=== PATIENT | female | born 1975 | race Caucasian/White ===

== ENCOUNTER → 2016-05-31 | Outpatient (CLI) | payer OTHER ==
--- NOTE | 2016-05-31 16:34 | RAD ---
EXAM: Frontal pelvis with bilateral hips 2 views. HISTORY: Bilateral hip pain. COMPARISON: None. FINDINGS: There is a sclerotic focus along the end osteal of the left proximal femur measuring 11 mm. There is no surrounding periosteal reaction or expansile change. No fractures are identified. The joint spaces and alignment of both hips appear maintained. IMPRESSION: 1. 11 mm sclerotic focus in the left proximal femur may be a bone island but this is unclear. Correlate for left proximal femoral pain. Follow-up radiographs could be performed in 3 months if there is persistent concern. If pain localizes to this site, MRI could be useful.
== END | disposition home or self-care (01) ==
LOC: RAD 14:56
PROVIDERS: ATTEND Physician Assistant Medical
DX: M25.551 Pain in right hip (principal); M25.552 Pain in left hip
CPT/HCPCS: 73521

== ENCOUNTER → 2016-11-08 | Outpatient (CLI) | payer OTHER ==
[2016-10-11 16:26] VITALS: BP 132/81
[2016-11-08 15:36] LABS: ALBUMIN 3.9 g/dL (3.4-5.0); CALCIUM 8.6 mg/dL (8.5-10.1); CREATININE 0.8 mg/dL (0.6-1.0); GFR 79.9; TOTAL BILIRUBIN 0.3 mg/dL (0.2-1.0); TOTAL PROTEIN 7.8 g/dL (6.4-8.2)
== END | disposition home or self-care (01) ==
LOC: LAB 15:00
PROVIDERS: ATTEND Psychiatry & Neurology Neurology
DX: G62.9 Polyneuropathy, unspecified (principal)
CPT/HCPCS: 36415; 80053; 82607; 84443

== ENCOUNTER → 2016-11-30 | Outpatient (CLI) | payer OTHER ==
[2016-10-11 16:26] VITALS: BP 132/81
[2016-11-30 16:21] LABS: CREATININE 0.9 mg/dL (0.6-1.0); GFR 69.7
== END | disposition home or self-care (01) ==
LOC: LAB 15:54
PROVIDERS: ATTEND Psychiatry & Neurology Neurology
DX: G93.2 Benign intracranial hypertension (principal); R79.1 Abnormal coagulation profile
CPT/HCPCS: 36415; 82565; 84520; 85049; 85610

== ENCOUNTER → 2017-01-18 | Outpatient (CLI) | payer OTHER ==
[2016-10-11 16:26] VITALS: BP 132/81
[2017-01-18 15:43] LABS: BASO # 0.1 x10^3/uL (0.0-0.2); BASO % 1 % (0-3); EOS % 1 % (0-3); HEMATOCRIT 36.4 % (36.0-47.0); HEMOGLOBIN 12.3 g/dL (12.0-15.5); LYMPH # 2.2 x10^3/uL (1.0-4.8); LYMPH % 24 % (24-48); MEAN CORPUSCULAR HEMOGLOBIN 29 pg (25-35); MEAN CORPUSCULAR HGB CONC 34 g/dL (31-37); MEAN CORPUSCULAR VOLUME 85 fL (79-100); MONO % 8 % (0-9); NEUT % 66 % (31-73); PLATELET COUNT 286 x10^3/uL (140-400); RED BLOOD COUNT 4.28 x10^6/uL (3.50-5.40); RED CELL DISTRIBUTION WIDTH 13.4 % (11.5-14.5); WHITE BLOOD COUNT 9.2 x10^3/uL (4.0-11.0)
== END | disposition home or self-care (01) ==
LOC: LAB 15:21
PROVIDERS: ATTEND Psychiatry & Neurology Neurology
DX: G93.2 Benign intracranial hypertension (principal)
CPT/HCPCS: 36415; 85025

== ENCOUNTER → 2017-01-24 | Outpatient (CLI) | payer OTHER ==
[~2017-01-24] VITALS: Ht 175.3 cm; Wt 113.4 kg
[~2017-01-24] MED LIST: LIDOCAINE 1% / SOD BICARB 8.4% 20 ML VIAL. IJ ONE; LIDOCAINE 1% Multi-Dose 20 ML VIAL. ONE; LIDOCAINE 1% PF 2 ML VIAL. INJ ONE
[2017-01-24 09:02] VITALS: BP 136/82
--- NOTE | 2017-01-24 10:30 | RAD ---
Fluoroscopically guided lumbar puncture 01/24/2017 Indication: Frequent migraine headaches. Comparison study: None Discussion: The risks and benefits of the procedure were discussed the patient. Informed consent was obtained. Timeout procedure was performed the patient was placed in the prone position. The lumbar spine was evaluated fluoroscopically. The low back was prepped and draped using sterile barrier technique. 1% lidocaine was administered to the skin and subcutaneous tissues for local anesthesia. Under intermittent fluoroscopic guidance a spinal needle was advanced into the thecal sac at the L2-L3 level. Opening pressure measures less than 18 cm water in the prone position. Closing pressure measures less than 18 cm water in the prone position (CSF flow stopped the needle hub with the patient in the prone position, and an 18 cm needle was used therefore opening pressure can only be measured as less than 18 cm) 9 cc of clear CSF was removed and sent for laboratory evaluation. The inner stylette was replaced and the needle was removed. Manual pressure was held. No immediate complications were identified. Impression: 1.Successful fluoroscopically guided lumbar puncture 2. Opening and closing pressures are less than 18 cm water, in the prone position, as described above in detail
[2017-01-24 12:00] LABS: CSF CLARITY CLEAR; CSF COLOR COLORLESS
[2017-01-24 12:26] LABS: CSF PROTEIN 36.6 mg/dL (15.0-45.0)
[2017-01-24 12:30] VITALS: BP 132/62
== END | disposition home or self-care (01) ==
LOC: RAD 08:09
PROVIDERS: ATTEND Psychiatry & Neurology Neurology
DX: G43.909 Migraine, unspecified, not intractable, without status migrainosus (principal); G93.2 Benign intracranial hypertension
CPT/HCPCS: 62270; 82945; 84157; 87205; 89051

== ENCOUNTER → 2017-02-01 | Outpatient (CLI) | payer OTHER ==
[2017-01-24 12:30] VITALS: BP 132/62
== END | disposition home or self-care (01) ==
LOC: LAB 14:56
PROVIDERS: ATTEND Nurse Practitioner Gerontology
DX: M25.50 Pain in unspecified joint (principal)
CPT/HCPCS: 36415; 86431

== ENCOUNTER → 2017-06-19 | Outpatient (CLI) | payer BC | END | disposition home or self-care (01) | LOC: ECHO 13:50 | DX: R06.09 Other forms of dyspnea (principal); R00.2 Palpitations | CPT/HCPCS: 93306 ==

== ENCOUNTER 2018-05-20 07:29 | Emergency (ER) | payer SELFPAY ==
[~2018-05-20] VITALS: Ht 175.3 cm; Wt 113.4 kg
[2018-05-20 07:31] VITALS: BP 131/69
--- NOTE | 2018-05-20 08:07 | PHYS DOC ---
Past Medical History Past Medical History: Arthritis, Other Additional Past Medical Histor: fibromyalgia Past Surgical History: No Surgical History Alcohol Use: Rarely Drug Use: None Adult General Chief Complaint Chief Complaint: UPPER EXTREMITY PAIN [facility] HPI Patient is a 43-year-old female who presents with complaint of left shoulder and arm pain for the last couple of weeks. Patient states that she had fallen about a month ago and injured her right ankle. She states that her shoulder bothered her a little bit at that time but she was more concerned about her ankle. Patient had x-rays of the ankle that demonstrated no acute abnormalities. She states that really over the last week the pain has been progressively getting worse and now she is having a difficult time lifting her arm to shoulder level. She rates pain as moderate and states the pain is significantly worsened with any more than minimal motion of the shoulder joint. She describes pain as a deep ache. Review of Systems Review of Systems Constitutional: Denies fever or chills [] Respiratory: Denies cough or shortness of breath [] Cardiovascular: No additional information not addressed in HPI [] Musculoskeletal: Complains of left shoulder and upper arm pain [] Integument: Denies rash or skin lesions [] Allergies Allergies Allergies Coded Allergies Type Severity Reaction Last Updated Verified No Known Drug Allergies 10/22/16 No Physical Exam Physical Exam Constitutional: Well developed, well nourished, no acute distress, non-toxic appearance. [] Neck: Normal range of motion, no tenderness, supple, no stridor. [] Cardiovascular: Regular rate and rhythm[] Lungs & Thorax: Bilateral breath sounds clear to auscultation [] Skin: Warm, dry, no erythema, no rash. [] Extremities: Examination of left shoulder demonstrates mild diffuse tenderness. There is significantly reduced range of motion with flexion, abduction as well as abduction and extension.. [] Neurologic: Alert and oriented X 3, no focal deficits noted. [] Current Patient Data Vital Signs Vital Signs Date Time Temp Pulse Resp B/P (MAP) Pulse Ox O2 Delivery O2 Flow Rate FiO2 05/20/18 07:31 97.5 87 20 131/69 (89) 99 Room Air 97.5 Lab Values Laboratory Tests Test 05/20/18 08:03 D-Dimer (Maritza) < 0.27 ug/mlFEU EKG EKG [] Radiology/Procedures Radiology/Procedures [] Impressions: PROCEDURE: SHOULDER 2+V LEFT 3 view study of the left shoulder Clinical indications: Left shoulder pain. FINDINGS: An old healed fracture of the lateral aspect of the left clavicle is seen. No acute-appearing fracture is evident. The glenohumeral joint is normally aligned. No AC joint separation is seen. No lytic process is evident. IMPRESSION: No acute osseous abnormality. Electronically signed by: Simon Castelan MD (05/20/2018 8:04 AM) Course & Med Decision Making Course & Med Decision Making Pertinent Labs and Imaging studies reviewed. (See chart for details) [] Dragon Disclaimer Dragon Disclaimer This electronic medical record was generated, in whole or in part, using a voice recognition dictation system. Departure Departure Impression: Primary Impression: Sprain of left shoulder Disposition: 01 HOME, SELF-CARE Condition: STABLE Referrals: REDD CAROLINA (PCP) Patient Instructions: Shoulder Sprain Scripts Diclofenac Sodium (DICLOFENAC SODIUM) 50 Mg Tablet.dr 1 TAB PO BID PRN for PAIN, #20 TAB Prov: BERNIE LABOY Jr. DO 05/20/18 Tramadol Hcl (TRAMADOL HCL) 50 Mg Tablet 50 MG PO Q6HRS PRN for PAIN, #15 TAB Prov: BERNIE LABOY Jr. DO 05/20/18 Problem Qualifiers Primary Impression: Sprain of left shoulder Encounter type: initial encounter Shoulder sprain type: unspecified sprain Qualified Codes: S43.402A - Unspecified sprain of left shoulder joint, initial encounter BERNIE LABOY Jr. DO May 20, 2018 08:07
[2018-05-20] MEDS ORDERED: TRAM50TA PO (08:37)
[2018-05-20] MEDS ORDERED: DICL50TA4 PO (08:37)
== END 2018-05-20 08:50 | disposition home or self-care (01) ==
LOC: ER 07:29
DX: S43.492A Other sprain of left shoulder joint, initial encounter (principal); M19.90 Unspecified osteoarthritis, unspecified site; W18.39XA Other fall on same level, initial encounter; Y93.89 Activity, other specified; Y92.89 Other specified places as the place of occurrence of the external cause; Y99.8 Other external cause status
CPT/HCPCS: 36415; 73030; 85379; 99284-25

== ENCOUNTER 2019-04-11 11:41 | Emergency (ER) | payer SELFPAY ==
[~2019-04-11] VITALS: Ht 175.3 cm; Wt 113.4 kg
[~2019-04-11 11:41] MED LIST changes: +DICL50TA4 PO; -LIDOCAINE 1% / SOD BICARB 8.4% 20 ML VIAL. IJ ONE; -LIDOCAINE 1% Multi-Dose 20 ML VIAL. ONE; -LIDOCAINE 1% PF 2 ML VIAL. INJ ONE; +TRAM50TA PO
--- NOTE | 2019-04-11 12:05 | PHYS DOC ---
Past Medical History Past Medical History: Arthritis, Other Additional Past Medical Histor: fibromyalgia Past Surgical History: No Surgical History Alcohol Use: Rarely Drug Use: None Adult General Chief Complaint Chief Complaint: SORE THROAT HPI HPI Patient is a 44 year old female who presents to the emergency department with complaints of a headache, dry cough, and sore throat for the last 3-4 days. Patient states she started to not feel well about a week ago. She reports having nasal congestion, frequent throat clearing, sore throat, and head congestion. Sh e denies any fever, shortness of breath, wheezing, ear pain, nausea, vomiting, diarrhea, or abdominal pain. She currently rates her pain as 6 out of 10 on pain scale denies any alleviating factors. Her pain increases with swallowing and coughing. All other ROS is neg unless otherwise noted in HPI. Review of Systems Review of Systems See Above Allergies Allergies Allergies Coded Allergies Type Severity Reaction Last Updated Verified No Known Drug Allergies 10/22/16 No Physical Exam Physical Exam See Above Constitutional: Well developed, well nourished, no acute distress, non-toxic appearance, obese. [] HENT: Normocephalic, atraumatic, bilateral external ears normal, bilateral TMs normal, cobblestone appearance of posterior pharynx ,oropharynx moist, no oral exudates, nose congested bilaterally Eyes: PERRLA, EOMI, conjunctiva normal, no discharge. [] Neck: Normal range of motion, no tenderness, supple, no stridor. [] Cardiovascular:Heart rate regular rhythm, no murmur [] Lungs & Thorax: Bilateral breath sounds clear to auscultation, Respirations even and unlabored, no retractions, no respiratory distress [] Skin: Warm, dry, no erythema, no rash. [] Back: No tenderness Extremities: No cyanosis, ROM intact Neurologic: Alert and oriented X 3, no focal deficits noted. [] Psychologic: Affect normal, judgement normal, mood normal. [] Current Patient Data Vital Signs Vital Signs Date Time Temp Pulse Resp B/P (MAP) Pulse Ox O2 Delivery O2 Flow Rate FiO2 04/11/19 11:55 98.3 96 16 148/76 (100) 99 Room Air 98.3 EKG EKG [] Radiology/Procedures Radiology/Procedures [] Course & Med Decision Making Course & Med Decision Making Pertinent Labs and Imaging studies reviewed. (See chart for details) dx: medical screening exam A medical screening exam was performed, patient was found to have no emergent medical condition. The plan of care would've included URI instructions. However, the patient eloped after talking with registration. [] [] Dragon Disclaimer Dragon Disclaimer This electronic medical record was generated, in whole or in part, using a voice recognition dictation system. Departure Departure Impression: Primary Impression: Encounter for medical screening examination Disposition: HOME, SELF-CARE (pt eloped after speaking with registration) Condition: STABLE Referrals: REDD CAROLINA (PCP) DANNA CLAUDIO APRN Apr 11, 2019 12:05
== END 2019-04-11 12:31 | disposition home or self-care (01) ==
LOC: ER 11:41
DX: J02.9 Acute pharyngitis, unspecified (principal); R09.81 Nasal congestion; R51 Headache; R05 Cough; M19.90 Unspecified osteoarthritis, unspecified site; M79.7 Fibromyalgia
CPT/HCPCS: 99281

== ENCOUNTER 2020-02-24 00:45 | Emergency (ER) | payer OTHER ==
[~2020-02-24] VITALS: Ht 175.3 cm; Wt 109.1 kg
[2020-02-24 01:57] LABS: BASO % 1 % (0-3); EOS % 1 % (0-3); HEMATOCRIT 34.2 % (36.0-47.0); HEMOGLOBIN 11.3 g/dL (12.0-15.5); LYMPH # 1.4 x10^3/uL (1.0-4.8); LYMPH % 21 % (24-48); MEAN CORPUSCULAR HEMOGLOBIN 26 pg (25-35); MEAN CORPUSCULAR HGB CONC 33 g/dL (31-37); MEAN CORPUSCULAR VOLUME 79 fL (79-100); MONO # 0.5 x10^3/uL (0.0-1.1); MONO % 8 % (0-9); NEUT # 4.8 x10^3/uL (1.8-7.7); NEUT % 70 % (31-73); PLATELET COUNT 303 x10^3/uL (140-400); RED BLOOD COUNT 4.32 x10^6/uL (3.50-5.40); WHITE BLOOD COUNT 6.9 x10^3/uL (4.0-11.0)
[2020-02-24 01:58] LABS: BILIRUBIN,URINE NEGATIVE (NEG); CLARITY,URINE CLEAR; COLOR,URINE YELLOW; NITRITE,URINE NEGATIVE (NEG); PROTEIN,URINE NEGATIVE (NEG-TRACE)
[2020-02-24 02:02] LABS: BACTERIA,URINE MANY /HPF (0-FEW); RBC,URINE 0 /HPF (0-2)
[2020-02-24 02:06] LABS: CALCIUM 8.9 mg/dL (8.5-10.1); CREATININE 0.8 mg/dL (0.6-1.0); GFR 78.7; POTASSIUM 3.6 mmol/L (3.5-5.1)
[2020-02-24 02:07] LABS: PARTIAL THROMBOPLASTIN TIME 31 SEC (24-38); PROTHROMBIN TIME PATIENT 13.1 SEC (11.7-14.0)
[2020-02-24 02:11] LABS: ALBUMIN 3.7 g/dL (3.4-5.0); ALBUMIN/GLOBULIN RATIO 0.9 (1.0-1.7); MAGNESIUM 2.1 mg/dL (1.8-2.4); TOTAL BILIRUBIN 0.3 mg/dL (0.2-1.0); TOTAL PROTEIN 7.6 g/dL (6.4-8.2)
--- NOTE | 2020-02-24 02:19 | RAD ---
PORTABLE CHEST 1V Clinical History: Reason: CHEST PAIN / Spl. Instructions: / History: Technique: AP view of the chest was obtained at 02/24/2020 1:25 AM. Comparison: None. Findings: The cardiomediastinal silhouette is normal. The pulmonary vasculature is normal. The lungs and pleural margins are clear. Impression: No evidence of an acute cardiopulmonary process. Electronically signed by: Gabriel Leggett III, MD (02/24/2020 2:16 AM) [facility]
[2020-02-24 02:25] LABS: D-DIMER < 0.27 ug/mlFEU (0.00-0.50)
[2020-02-24] MEDS ORDERED: CONTRAST GIVEN. MC PRN (03:30)
[2020-02-24] MEDS ORDERED: IOHEXOL 350 MG/ML 100 ML VIAL. IV ONE (03:30)
--- NOTE | 2020-02-24 04:00 | PHYS DOC ---
Past Medical History Past Medical History: Arthritis, Other Additional Past Medical Histor: fibromyalgia Past Surgical History: Additional Past Surgical Histo: 2 c-sections Smoking Status: Never Smoker Alcohol Use: Rarely Drug Use: None General Adult EDM: Chief Complaint: CHEST PAIN HPI: HPI: Patient is a 44 year old female who presented to ER for evaluation of substernal chest pain happened about 2 hours ago while she was at work. She al so have trouble breathing. Patient denies any recent travel or operation, no family history of heart problem, patient denied any history of high blood pressure or diabetes, no history of high cholesterol. Patient denied being exposed to anybody who tested positive COVID-19, no cough, no fever. 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 Review of Systems: Review of Systems: Constitutional: Denies fever or chills. [] Eyes: Denies change in visual acuity. [] HENT: Denies nasal congestion or sore throat. [] Respiratory: Denies cough , positive for shortness of breath. [] Cardiovascular: Positive for chest pain , no edema. [] GI: Denies abdominal pain, nausea, vomiting, bloody stools or diarrhea. [] : Denies dysuria. [] Musculoskeletal: Denies back pain or joint pain. [] Integument: Denies rash. [] Neurologic: Denies headache, focal weakness or sensory changes. [] Endocrine: Denies polyuria or polydipsia. [] Lymphatic: Denies swollen glands. [] Psychiatric: Denies depression or anxiety. [] Heart Score: HEART Score for Chest Pain: HEART Score for Chest Pain Response (Comments) Value History Slighlty/Non-Suspicious 0 ECG Normal 0 Age < 45 0 Risk Factors No Risk Factors 0 Troponin < Normal Limit 0 Total 0 Risk Factors: Risk Factors: DM, Current or recent (<one month) smoker, HTN, HLP, family history of CAD, obesity. Risk Scores: Score 0 - 3: 2.5% MACE over next 6 weeks - Discharge Home Score 4 - 6: 20.3% MACE over next 6 weeks - Admit for Clinical Observation Score 7 - 10: 72.7% MACE over next 6 weeks - Early Invasive Strategies Current Medications: Current Medications Medications (Trade) Dose Ordered Sig/Yesenia Start Time Stop Time Status Last Admin Dose Admin Info (CONTRAST GIVEN -- Rx MONITORING) 1 each PRN DAILY PRN 02/24/20 03:30 02/26/20 03:29 Iohexol (Omnipaque 350 Mg/ml) 100 ml 1X ONCE 02/24/20 03:30 02/24/20 03:31 DC Allergies: Allergies: Allergies Coded Allergies Type Severity Reaction Last Updated Verified No Known Drug Allergies 10/22/16 No Physical Exam: PE: Constitutional: Well developed, well nourished, no acute distress, non-toxic appearance. [] HENT: Normocephalic, atraumatic, bilateral external ears normal, oropharynx moist, no oral exudates, nose normal. [] Eyes: PERRLA, EOMI, conjunctiva normal, no discharge. [] Neck: Normal range of motion, no tenderness, supple, no stridor. [] Cardiovascular:Heart rate regular rhythm, no murmur [] Lungs & Thorax: Bilateral breath sounds clear to auscultation [] Abdomen: Bowel sounds normal, soft, no tenderness, no masses, no pulsatile masses. [] Skin: Warm, dry, no erythema, no rash. [] Back: No tenderness, no CVA tenderness. [] Extremities: No tenderness, no cyanosis, no clubbing, ROM intact, no edema. [] Neurologic: Alert and oriented X 3, normal motor function, normal sensory function, no focal deficits noted. [] Psychologic: Affect normal, judgement normal, mood normal. [] Current Patient Data: Labs: Laboratory Tests Test 02/24/20 01:40 02/24/20 01:45 02/24/20 01:51 Urine Collection Type Unknown Urine Color Yellow Urine Clarity Clear Urine pH 6.0 (<5.0-8.0) Urine Specific [place] 1.015 (1.000-1.030) Urine Protein Negative mg/dL (NEG-TRACE) Urine Glucose (UA) Negative mg/dL (NEG) Urine Ketones (Stick) Negative mg/dL (NEG) Urine Blood Negative (NEG) Urine Nitrite Negative (NEG) Urine Bilirubin Negative (NEG) Urine Urobilinogen Dipstick 1.0 mg/dL (0.2 mg/dL) Urine Leukocyte Esterase Negative (NEG) Urine RBC 0 /HPF (0-2) Urine WBC 1-4 /HPF (0-4) Urine Squamous Epithelial Cells Many /LPF Urine Bacteria Many /HPF (0-FEW) Urine Mucus Marked /LPF White Blood Count 6.9 x10^3/uL (4.0-11.0) Red Blood Count 4.32 x10^6/uL (3.50-5.40) Hemoglobin 11.3 g/dL (12.0-15.5) L Hematocrit 34.2 % (36.0-47.0) L Mean Corpuscular Volume 79 fL (79-100) Mean Corpuscular Hemoglobin 26 pg (25-35) Mean Corpuscular Hemoglobin Concent 33 g/dL (31-37) Red Cell Distribution Width 15.0 % (11.5-14.5) H Platelet Count 303 x10^3/uL (140-400) Neutrophils (%) (Auto) 70 % (31-73) Lymphocytes (%) (Auto) 21 % (24-48) L Monocytes (%) (Auto) 8 % (0-9) Eosinophils (%) (Auto) 1 % (0-3) Basophils (%) (Auto) 1 % (0-3) Neutrophils # (Auto) 4.8 x10^3/uL (1.8-7.7) Lymphocytes # (Auto) 1.4 x10^3/uL (1.0-4.8) Monocytes # (Auto) 0.5 x10^3/uL (0.0-1.1) Eosinophils # (Auto) 0.0 x10^3/uL (0.0-0.7) Basophils # (Auto) 0.0 x10^3/uL (0.0-0.2) Prothrombin Time 13.1 SEC (11.7-14.0) Prothrombin Time INR 1.0 (0.8-1.1) Activated Partial Thromboplast Time 31 SEC (24-38) D-Dimer (Maritza) < 0.27 ug/mlFEU Sodium Level 137 mmol/L (136-145) Potassium Level 3.6 mmol/L (3.5-5.1) Chloride Level 102 mmol/L (98-107) Carbon Dioxide Level 26 mmol/L (21-32) Anion Gap 9 (6-14) Blood Urea Nitrogen 9 mg/dL (7-20) Creatinine 0.8 mg/dL (0.6-1.0) Estimated GFR (Cockcroft-Gault) 78.7 BUN/Creatinine Ratio 11 (6-20) Glucose Level 100 mg/dL (70-99) H Calcium Level 8.9 mg/dL (8.5-10.1) Magnesium Level 2.1 mg/dL (1.8-2.4) Total Bilirubin 0.3 mg/dL (0.2-1.0) Aspartate Amino Transferase (AST) 24 U/L (15-37) Alanine Aminotransferase (ALT) 32 U/L (14-59) Alkaline Phosphatase 84 U/L (46-116) Troponin I Quantitative < 0.017 ng/mL (0.000-0.055) LZ-[id number]-Type Natriuretic Peptide 41 pg/mL (0-124) Total Protein 7.6 g/dL (6.4-8.2) Albumin 3.7 g/dL (3.4-5.0) Albumin/Globulin Ratio 0.9 (1.0-1.7) L Lipase 202 U/L (73-393) POC Urine HCG, Qualitative Hcg negative (Negative) Laboratory Tests 02/24/20 01:45 Laboratory Tests 02/24/20 01:45 Vital Signs: Vital Signs Date Time Temp Pulse Resp B/P (MAP) Pulse Ox O2 Delivery O2 Flow Rate FiO2 02/24/20 01:30 97.7 62 18 120/61 (80) 100 Room Air 97.7 EKG: EKG: EKG was done in 056, heart rate 66 beats per minute, sinus rhythm, no ST segment elevation. Radiology/Procedures: Radiology/Procedures: [][facility] [address] [place], [place] [id number] IMAGING REPORT Signed PATIENT: KARLENE SALAZAR ACCOUNT: [id number] : 1975 LOCATION: ER AGE: 44 SEX: F EXAM STATUS: REG ER ORD. PHYSICIAN: YURIY BARNES DO REASON: chest pain, shortness of air PROCEDURE: CT ANGIOGRAPHY CHEST CTA Chest with contrast: Clinical History: Reason: chest pain, shortness of air / Spl. Instructions: / History: Shortness of breath. Axial helical images of the chest were obtained after the administration of 100 cc of IV Omni 300 and timed appropriately for a pulmonary arterial study. Conventional axial reconstruction was performed in addition to coronal, sagittal and bilateral oblique MIP (maximum intensity projection). This study was ordered to detect possible pulmonary embolism. The first attempt the contrast spilled from a ruptured IV and the study had to be repeated. There are no filling defects to suggest pulmonary embolism. Impression The lungs and pleural margins are clear. There is no mediastinal or hilar lymphadenopathy. The thoracic aorta appears normal. Impression: 1. No evidence of pulmonary embolism. 2. No significant findings. PQRS Compliance Statement: One or more of the following individualized dose reduction techniques were utilized for this examination: 1. Automated exposure control 2. Adjustment of the mA and/or kV according to patient size 3. Use of iterative reconstruction technique Electronically signed by: Valeri Mccord III, MD (02/24/2020 4:32 AM) [facility] DICTATED and SIGNED BY: VALERI MCCORD III, MD DATE: 02/24/20 0432 Course & Med Decision Making: Course & Med Decision Making Pertinent Labs and Imaging studies reviewed. (See chart for details) Patient is a 44-year-old female who was evaluated in the ER due to chest pain and trouble breathing. Her EKG and lab work did not show any acute problem. CT scan her chest did not show any acute problem. Patient will be discharged home, she will need to follow-up with cardiology for outpatient evaluation. Patient is amenable to plan of care Dragon Disclaimer: Dragduglas Disclaimer: This electronic medical record was generated, in whole or in part, using a voice recognition dictation system. Departure Departure Impression: Primary Impression: Chest pain Disposition: 01 DC HOME SELF CARE/HOMELESS Condition: STABLE Referrals: REDD CAROLINA (PCP) ZOYA JIMENEZ MD please call this title examiner for outpatient evaluation this week. Patient Instructions: Chest Pain (Nonspecific) Additional Instructions: Thank you for visiting our Emergency Department. We appreciate you trusting us with your care. If any additional problems come up don't hesitate to return to visit us. Please follow up with your primary care provider so they can plan additional care if needed and know about the problem that you had. If symptoms worsen come back to the Emergency Department. Any concerning symptoms that start such as chest pain, shortness of air, weakness or numbness on one side of the body, running high fevers or any other concerning symptoms return to the ER. YURIY BARNES DO Feb 24, 2020 04:00
--- NOTE | 2020-02-24 04:35 | RAD ---
CTA Chest with contrast: Clinical History: Reason: chest pain, shortness of air / Spl. Instructions: / History: Shortness of breath. Axial helical images of the chest were obtained after the administration of 100 cc of IV Omni 300 and timed appropriately for a pulmonary arterial study. Conventional axial reconstruction was performed in addition to coronal, sagittal and bilateral oblique MIP (maximum intensity projection). This study was ordered to detect possible pulmonary embolism. The first attempt the contrast spilled from a ruptured IV and the study had to be repeated. There are no filling defects to suggest pulmonary embolism. Impression The lungs and pleural margins are clear. There is no mediastinal or hilar lymphadenopathy. The thoracic aorta appears normal. Impression: 1. No evidence of pulmonary embolism. 2. No significant findings. PQRS Compliance Statement: One or more of the following individualized dose reduction techniques were utilized for this examination: 1. Automated exposure control 2. Adjustment of the mA and/or kV according to patient size 3. Use of iterative reconstruction technique Electronically signed by: Gabriel Leggett III, MD (02/24/2020 4:32 AM) [facility]
[2020-02-24 05:41] VITALS: BP 110/58
--- NOTE | 2020-02-24 09:29 | EKG ---
[facility] [address] [place] [address] Test Date: 2020-02-24 Test Time: 00:56:03 Pat Name: KARLENE SALAZAR Department: Room: Gender: F [employer] E Logger: : 1975 Requested By: YURIY BARNES Order Number: [id number] Reading MD: Measurements Intervals [place] Rate: 66 P: ID: QRS: 27 QRSD: 78 T: 53 QT: 376 QTc: 396 Interpretive Statements IRREGULAR RHYTHM, NO P-WAVE FOUND OTHERWISE NORMAL ECG RI6.02 No previous ECG available for comparison
== END 2020-02-24 06:30 | disposition home or self-care (01) ==
LOC: ER 00:45
DX: R07.2 Precordial pain (principal); R06.02 Shortness of breath; M19.90 Unspecified osteoarthritis, unspecified site; M79.7 Fibromyalgia; Z98.890 Other specified postprocedural states
CPT/HCPCS: 36415; 71045; 71275; 80053; 81001; 81025; 83690; 83735; 83880; 84484; 85025; 85379; 85610; 85730; 87086; 93005; 99285; Q9967

== ENCOUNTER 2020-06-06 20:29 | Emergency (ER) | payer OTHER ==
[~2020-06-06] VITALS: Ht 175.3 cm; Wt 112.7 kg
[2020-06-06 20:35] VITALS: BP 125/72
--- NOTE | 2020-06-06 21:09 | PHYS DOC ---
Past Medical History Past Medical History: Arthritis, Other Additional Past Medical Histor: fibromyalgia Past Surgical History: Additional Past Surgical Histo: 2 c-sections Smoking Status: Never Smoker Alcohol Use: Rarely Drug Use: None General Adult EDM: Chief Complaint: BACK PAIN - NO INJURY HPI: HPI: Patient is a 45 year old female who presents with bilateral knee pain has yosvany en worse since to temperature change. Patient states she has been taking Billy at home to help with her bilateral knee pain. She rates her pain a 2 out of 10 at this time. She is amatory with a steady gait. She is also complaining of right lower back pain with right sciatica down the back of the leg. She describes her pain as " snap crackle and pop". She states that she does note that she has arthritis in her knees. She states she been taking Billy aspirin that is not helping. Patient states she also has this chronic low back pain but the sciatica but her doctor will not do anything about it. She denies loss of bowel bladder, numbness or tingling, focal weakness, urinary symptoms, fall, injuries. Review of Systems: Review of Systems: Constitutional: Denies fever or chills. [] Eyes: Denies change in visual acuity. [] HENT: Denies nasal congestion or sore throat. [] Respiratory: Denies cough or shortness of breath. [] Cardiovascular: Denies chest pain or edema. [] GI: Denies abdominal pain, nausea, vomiting, bloody stools or diarrhea. [] : Denies dysuria. [] Musculoskeletal: + Right sided lower back pain with sharp shooting down right leg or + bilateral knee joint pain. [] Integument: Denies rash. [] Neurologic: Denies headache, focal weakness or sensory changes. [] Endocrine: Denies polyuria or polydipsia. [] Lymphatic: Denies swollen glands. [] Psychiatric: Denies depression or anxiety. [] Heart Score: Risk Factors: Risk Factors: DM, Current or recent (<one month) smoker, HTN, HLP, family history of CAD, obesity. Risk Scores: Score 0 - 3: 2.5% MACE over next 6 weeks - Discharge Home Score 4 - 6: 20.3% MACE over next 6 weeks - Admit for Clinical Observation Score 7 - 10: 72.7% MACE over next 6 weeks - Early Invasive Strategies Allergies: Allergies: Allergies Coded Allergies Type Severity Reaction Last Updated Verified No Known Drug Allergies 10/22/16 No Physical Exam: PE: Constitutional: Well developed, well nourished, no acute distress, non-toxic appearance. [] HENT: Normocephalic, atraumatic, bilateral external ears normal, oropharynx moist, no oral exudates, nose normal. [] Eyes: PERRLA, EOMI, conjunctiva normal, no discharge. [] Neck: Normal range of motion, no tenderness, supple, no stridor. [] Cardiovascular:Heart rate regular rhythm, no murmur [] Lungs & Thorax: Bilateral breath sounds clear to auscultation [] Abdomen: Bowel sounds normal, soft, no tenderness, no masses, no pulsatile masses. [] Skin: Warm, dry, no erythema, no rash. [] Back: Right lower back tenderness, no CVA tenderness. [] Extremities: No tenderness, no cyanosis, no clubbing, ROM intact, no edema. [] Neurologic: Alert and oriented X 3, normal motor function, normal sensory function, no focal deficits noted. [] Psychologic: Affect normal, judgement normal, mood normal. [] EKG: EKG: [] Radiology/Procedures: Radiology/Procedures: [] Impression: [facility] [address] [place] [address] IMAGING REPORT Signed PATIENT: KARLENE SALAZAR ACCOUNT: [id number] : 1975 LOCATION: ER AGE: 45 SEX: F EXAM STATUS: REG ER ORD. PHYSICIAN: MARIO HAUSER APRN REASON: pain, popping PROCEDURE: KNEE BILAT 3V XR KNEE 3 VIEWS Clinical Indication: Reason: pain, popping / Spl. Instructions: / History: Comparison: Bilateral knee radiographs, February 01, 2017. Findings: Right: There is mild medial compartment narrowing and tiny marginal osteophytes. There is no acute fracture. The mineralization is normal.. Patella is in anatomic position. There is no joint effusion. No soft tissue swelling is seen. Left: There is mild medial compartment narrowing and tiny marginal osteophytes. There is no acute fracture. The mineralization is normal. The patella is in anatomic position. There is no joint effusion. No soft tissue swelling is identified. IMPRESSION: 1. No acute fracture. 2. There is bilateral mild medial compartment arthropathy without progression from prior study. Electronically signed by: Jas Sandoval MD (06/06/2020 9:38 PM) [facility] DICTATED and SIGNED BY: JAS SANDOVAL MD DATE: 06/06/20 [id number] [facility] [address] [address] IMAGING REPORT Signed PATIENT: KARLENE SALZAAR ACCOUNT: [id number] : 1975 LOCATION: ER AGE: 45 SEX: F EXAM STATUS: REG ER ORD. PHYSICIAN: MARIO HAUSER APRN REASON: pain with sciatica PROCEDURE: CT LUMBAR SPINE WO CONTRAST Exam: CT lumbar spine without contrast INDICATION: Pain TECHNIQUE: Sequential axial images through the lumbar spine obtained without IV contrast. Sagittal and coronal reformatted images were reconstructed from the axial data and reviewed. Comparisons: None FINDINGS: Vertebral body heights are well-maintained. There is straightening of the lumbar spine which may be positional. Fracture through the lumbar spine is not identified. There is mild spondylotic changes lumbar spine greatest at L5-S1 with mild to moderate right-sided neural foraminal stenosis Visualized paraspinal soft tissues are unremarkable. IMPRESSION: Mild spondylotic changes lumbar spine as described above. No acute osseous abnormality identified. Exposure: One or more of the following in the visualized dose reduction dean hniques were utilized for this examination: 1. Automated exposure control 2. Adjustment of the MA and/or KV according to patient size 3. Use of iterative of reconstructive technique Electronically signed by: Keshawn Jo MD (06/06/2020 10:12 PM) [facility] DICTATED and SIGNED BY: KESHAWN JO MD DATE: 06/06/20 [id number] 0 Course & Med Decision Making: Course & Med Decision Making Pertinent Labs and Imaging studies reviewed. (See chart for details) See HPI. No joint swelling or deformities. Right lower back tenderness with palpation. No focal bony spinal tenderness. No saddle paresthesia. Ambulating with a slow steady gait. Full strength and range of motion's at all extremi ties. Sensations intact. Neurovascularly intact. No tenderness over knee joints or redness or swelling. [] Taylor Disclaimer: Taylor Disclaimer: This electronic medical record was generated, in whole or in part, using a voice recognition dictation system. Departure Departure Impression: Primary Impression: Low back pain Qualified Codes: M54.41 - Lumbago with sciatica, right side Additional Impression: Bilateral knee pain Qualified Codes: M25.561 - Pain in right knee; M25.562 - Pain in left knee Disposition: HOME SELF CARE/HOMELESS Condition: STABLE Referrals: REDD CAROLINA (PCP) VLADIMIR RODRIGUEZ MD, JOHN N MD Patient Instructions: Arthralgia, Arthritis, Nonspecific, Back Pain, Adult, Sciatica with Rehab-SportsMed Additional Instructions: Follow-up with the doctors I have referred you too referred you to. Take medication as prescribed and with food. Remember some these medications make you sleepy. Use a heating pad or ice to help with pain. If you suddenly lose your bowel or bladder or have focal weakness return emergency room. Scripts Hydrocodone Bit/Acetaminophen (HYDROCODONE-APAP 5-325 ) 1 Tab Tablet 1 TAB PO PRN Q6HRS PRN for PAIN, #12 TAB 0 Refills Prov: MARIO HAUSER APRN 06/06/20 Cyclobenzaprine Hcl (CYCLOBENZAPRINE HCL) 5 Mg Tablet 1 TAB PO TID for 7 Days, #21 TAB Prov: MARIO HAUSER APRN 06/06/20 Methylprednisolone (MEDROL) 4 Mg Tab.ds.pk 1 PKG PO UD, #1 PKG Prov: MARIO HAUSER APRN 06/06/20 MARIO HAUSER APRN Jun 06, 2020 21:09
[2020-06-06 21:22] LABS: BILIRUBIN,URINE NEGATIVE (NEG); CLARITY,URINE CLEAR; COLOR,URINE YELLOW; NITRITE,URINE NEGATIVE (NEG); PROTEIN,URINE NEGATIVE (NEG-TRACE)
[2020-06-06] MEDS ORDERED: ORPHENADRINE CITRATE 60 MG/2 ML VIAL. IM ONE (21:30)
[2020-06-06] MEDS ORDERED: HYDROcodone/APAP 5/325MG 1 TAB TABLET PO ONE (21:30)
[2020-06-06] MEDS ORDERED: DEXAMETHASONE 4 MG TABLET PO ONE (21:30)
[2020-06-06 21:34] LABS: RBC,URINE OCC /HPF (0-2); WBC,URINE RARE /HPF (0-4)
[2020-06-06 21:35] LABS: BACTERIA,URINE MANY /HPF (0-FEW)
--- NOTE | 2020-06-06 21:41 | RAD ---
XR KNEE 3 VIEWS Clinical Indication: Reason: pain, popping / Spl. Instructions: / History: Comparison: Bilateral knee radiographs, February 01, 2017. Findings: Right: There is mild medial compartment narrowing and tiny marginal osteophytes. There is no acute fracture. The mineralization is normal.. Patella is in anatomic position. There is no joint effusion. No soft tissue swelling is seen. Left: There is mild medial compartment narrowing and tiny marginal osteophytes. There is no acute fracture. The mineralization is normal. The patella is in anatomic position. There is no joint effusion. No so ft tissue swelling is identified. IMPRESSION: 1. No acute fracture. 2. There is bilateral mild medial compartment arthropathy without progression from prior study. Electronically signed by: Jas Sandoval MD (06/06/2020 9:38 PM) [facility]
--- NOTE | 2020-06-06 22:14 | RAD ---
Exam: CT lumbar spine without contrast INDICATION: Pain TECHNIQUE: Sequential axial images through the lumbar spine obtained without IV contrast. Sagittal an d coronal reformatted images were reconstructed from the axial data and reviewed. Comparisons: None FINDINGS: Vertebral body heights are well-maintained. There is straightening of the lumbar spine which may be p ositional. Fracture through the lumbar spine is not identified. There is mild spondylotic changes lumbar spine greatest at L5-S1 with mild to moderate right-sided ne ural foraminal stenosis Visualized paraspinal soft tissues are unremarkable. IMPRESSION: Mild spondylotic changes lumbar spine as described above. No acute osseous abnormality identified. Exposure: One or more of the following in the visualized dose reduction techniques were utilized for this examination: 1. Automated exposure control 2. Adjustment of the MA and/or KV according to patient size 3. Use of iterative of reconstructive technique Electronically signed by: Keshawn Silva MD (06/06/2020 10:12 PM) [facility]
[2020-06-06] MEDS ORDERED: CYCL5TAB PO (22:26)
[2020-06-06] MEDS ORDERED: METH4TAB2 PO (22:26)
[2020-06-06] MEDS ORDERED: HYDR-2761 PO (22:26)
== END 2020-06-06 22:51 | disposition home or self-care (01) ==
LOC: ER 20:29
DX: M54.41 Lumbago with sciatica, right side (principal); M25.561 Pain in right knee; M25.562 Pain in left knee; M19.90 Unspecified osteoarthritis, unspecified site; M79.7 Fibromyalgia; Z98.890 Other specified postprocedural states
CPT/HCPCS: 72131; 73562; 81001; 81025; 87086; 96372; 99285; J2360